=== PATIENT | female | born 1995 | race Caucasian/White ===

== ENCOUNTER 2019-05-15 13:58 | Outpatient (RCR) | payer OTHER ==
[~2019-05-15 13:58] MED LIST: BIRTH CONTROL PO
== END 2019-08-04 | disposition home or self-care (01) ==
LOC: WSOH
DX: S06.0X0A Concussion without loss of consciousness, initial encounter (principal); S00.01XA Abrasion of scalp, initial encounter; W22.8XXA Striking against or struck by other objects, initial encounter; Y92.214 College as the place of occurrence of the external cause; Y99.0 Civilian activity done for income or pay; J45.909 Unspecified asthma, uncomplicated